=== PATIENT | male | born 1985 ===

== ENCOUNTER 2024-10-19 14:03 | Emergency (ER) | payer SELFPAY ==
[2024-10-19 14:12] VITALS: BP 124/75; BP 144/93; PULSE 100; PULSE 87; RESP 18; TEMP 36.7; O2SAT 98; BMI 28.6
--- NOTE | 2024-10-19 14:32 | ED.ALLEREA ---
HPI - Allergic Reaction General Chief complaint: Allergic Reaction Stated complaint: ALLERGIC RXN TO BEE STINGS Time Seen by Provider: 10/19/24 14:13 Source: patient, EMS, old records reviewed and spanish interpreter Mode of arrival: EMS Limitations: no limitations History of Present Illness ED Provider: NENA ROLLE narrative: 39 yo male with hx of bee allergy who reports he was stung yesterday x 1 and seemed okay then was working outside again when he was stung at least 6 times. He developed hoarseness, swelling, trouble breathing. He has hx of anaphylaxis but no epi pen. EMS gave IV steroids, benadryl and IM epi. MD complaint: allergic reaction Onset (ago): minute(s) ([employer]) Exposure: insect bite Symptoms: other Severity: moderate Treatment prior to arrival: benadryl, epinephrine and steroids Previous Allergic Reaction History: anaphylaxis Related Data Previous Rx's ?Medication ?Instructions ?Recorded epinephrine 0.3 mg/0.3 mL 0.3 mg (0.3 mL) IM Q10M PRN 10/19/24 injection, auto-injector anaphylaxis #2 ea prednisone 20 mg tablet 40 mg (2 x 20 mg) PO DAILY 5 days 10/19/24 #10 tabs Allergies Allergy/AdvReac Type Severity Reaction Status Date / Time bee pollen (bee stings) Allergy Anaphylaxis Verified 10/19/24 14:18 Review of Systems Review of Systems: Constitutional : No Fever, No Chills ENT/Mouth : positive oral swelling, pos Hoarseness, No Swallowing Difficulty Eyes: No Eye Pain, No Swelling, No Redness Cardiovascular : No Chest Pain, pos SOB Respiratory : No Cough, No Sputum, No Wheezing Gastrointestinal : No Nausea, No Vomiting, No Diarrhea, No abdominal Pain Genitourinary : No Dysuria, No Urinary Frequency, No Hematuria Musculoskeletal : No joint pain, No Myalgias, No Joint Swelling Skin : No Skin Lesions, positive rash Neuro : No Weakness, No Numbness, No Headache Psych : No Anxiety/Panic, No Depression Heme/Lymph: No Bruising, No Lymphadenopathy Endocrine : No Polyuria, No Polydipsia All other systems reviewed and are negative [facility] Past Medical History Attestation statement: The following information was validated with the patient. Source: old records reviewed Social History Social History (Updated 10/19/24 @ 15:48 by Dory Morales DO) Patient Tobacco Use Status: Tobacco use Unknown Physical Exam ED Vital Signs: Vital Signs - 24 hr 10/19/24 14:12 Temperature 98.1 F Pulse Rate 87 Respiratory Rate 18 Blood Pressure 124/75 Pulse Oximetry 98 Oxygen Delivery Method Room Air BMI result Body Mass Index 28.6 Appearance: Alert. Oriented X3. No acute distress. Eyes: Pupils equal, round and reactive to light. ENT: Pharynx normal. Neck: Normal inspection. Neck supple. CVS: Normal heart rate and rhythm. Pulses normal. Respiratory: No respiratory distress. Breath sounds normal. No stridor Abdomen: Soft and nontender. Skin: Skin warm and dry. Normal skin color. Normal skin turgor. Extremities: No lower extremity edema. hives noted and both hands are swollen. Neuro: Oriented X 3. No motor deficit. No sensory deficit. CN2-12 intact Medications Administered Discontinued Medications Generic Name Dose Route Start Last Admin Trade Name Freq PRN Reason Stop Dose Admin Famotidine 20 mg 10/19/24 14:21 10/19/24 14:39 Famotidine/Pf 20 Mg/2 Ml Vial IVPUSH 10/19/24 14:22 20 mg ONCE ONE Administration Medical Decision Making Medical Decision Making MDM Narrative: 39 yo male with prior anaphylaxis here with c/o oral swelling, anaphylaxis issues and was already treated by EMS with steroids, benadryl and IM epi on arrival he states he feels much better - will add on pepcid also plan to observe x 2 hours. If doing well will DC with epi and prednisone. Differential Diagnosis Differential Diagnoses: The differential diagnosis associated with the presentation includes anaphylaxis Admission/Observation Consideration of admission/observation: Escalation of care including admission/observation considered improved no issues but refuses to stay whole 2 hours states he is going to pharmacy aware from arrival he needed obs x 2 hour. Independent Historian Clinical information obtained from an independent historian. History obtained from or confirmed by: Spouse External Record Review External record reviewed: Outpatient record Prescription Management I considered prescription management with: Other (epi pen) Discharge Plan Discharge Clinical Impression: Anaphylaxis Qualifiers: Encounter type: initial encounter Qualified Code(s): T78.2XXA - Anaphylactic shock, unspecified, initial encounter Patient Disposition: Home, Self-Care Instructions: General Allergic Reaction (ED) Additional Instructions: monitor for any worsening symptoms like breathing, oral swelling, vomiting, fainting carry epi pen with you at all times if you administer the epi pen call 911 Prescriptions: New prednisone 20 mg tablet 40 mg PO DAILY 5 Days Qty: 10 0RF epinephrine 0.3 mg/0.3 mL auto-injector 0.3 mg IM Q10M PRN (Reason: anaphylaxis) Qty: 2 1RF Rx Instructions: for 2 doses Print Language: Burundian
[2024-10-19 15:53] VITALS: BP 124/75; PULSE 87; RESP 18; TEMP 36.7; O2SAT 98
== END 2024-10-19 15:53 | disposition home or self-care (01) ==
PROVIDERS: Emergency Provider Emergency Medicine
DX: T63.441A Toxic effect of venom of bees, accidental (unintentional), initial encounter (principal); T78.2XXA Anaphylactic shock, unspecified, initial encounter; Y92.017 Garden or yard in single-family (private) house as the place of occurrence of the external cause
CPT/HCPCS: 96374; 99282; 99284; J1308